=== PATIENT | male | born 1995 | race Caucasian/White ===

== ENCOUNTER 2017-02-23 08:52 | Emergency (ER) | payer SELFPAY ==
[~2017-02-23] VITALS: Ht 170.2 cm; Wt 65.0 kg
[2017-02-23 09:00] VITALS: Ht 170.2 cm; Wt 65.0 kg
[2017-02-23] MEDS ORDERED: LORAZEPAM 2 MG INJ IM STA (09:02)
[2017-02-23] MEDS ORDERED: HALOPERIDOL 5 MG INJ IM STA (09:02)
[2017-02-23 11:03] LABS: BASOPHILS % 0.2 % (0.0-2.0); EOSINOPHILS # 0.1 10^3/ul (0.0-0.5); EOSINOPHILS % 0.6 % (0.0-7.0); HEMATOCRIT 44.5 % (42.0-52.0); HEMOGLOBIN 15.3 g/dl (14.0-18.0); MEAN CORPUSCULAR HEMOGLOBIN 31.2 pg (29.0-33.0); MEAN CORPUSCULAR HGB CONC 34.4 g/dl (32.0-37.0); MEAN CORPUSCULAR VOLUME 90.8 fl (82.0-101.0); MONOCYTE # 0.7 10^3/ul (0.3-0.9); MONOCYTES % 6.6 % (0.0-11.0); NEUTROPHIL # 8.5 10^3/ul (1.6-7.5); NEUTROPHILS % 82.4 % (39.0-77.0); PLATELET COUNT 256 10^3/UL (140-415); RED CELL DISTRIBUTION WIDTH 14.3 % (11.5-14.5); WHITE BLOOD COUNT 10.3 10^3/ul (4.8-10.8)
--- NOTE | 2017-02-23 11:27 | ERD ---
ER Documentation Chief Complaint Chief Complaint IN ED FOR EVAL OF AGITATION. PT STATES TOOK METH. HPI This 21-year-old male was brought in today by [email or web address] [email or web address] worker who is a friend of the family and states that she admitted to taking meth and hearing voices. He is not taking any of his medications which are unknown for his long-term schizophrenia. Is also had bizarre behavior in the family is worried about him. Patient himself is talking but states he does not want to talk about hearing voices. He refuses to sit down in a gurney. ROS All systems reviewed and are negative except as per history of present illness although patient is unreliable and not answering all questions. Medications Home Meds Unable to Obtain Active Prescriptions or Reported Meds Allergies Allergies: Coded Allergies: No Known Allergy (Unverified , 02/23/17) PMhx/Soc Medical and Surgical Hx: pt denies Medical Hx, pt denies Surgical Hx Hx Alcohol Use: Yes Hx Substance Use: Yes Hx Tobacco Use: Yes Smoking Status: Current every day smoker Physical Exam Vitals Vital Signs Date Time Temp Pulse Resp B/P Pulse Ox O2 Delivery O2 Flow Rate FiO2 02/23/17 11:00 9702.8 94 17 121/81 97 02/23/17 10:45 97.1 89 16 119/79 98 02/23/17 10:30 97.2 98 14 117/78 99 02/23/17 10:15 98.1 104 16 127/76 98 02/23/17 10:00 97.0 119 74 121/71 100 02/23/17 09:45 97.4 127 18 127/81 100 02/23/17 09:30 97.1 135 18 134/79 100 02/23/17 09:00 97.9 139 19 139/85 99 Physical Exam Const: [] No acute physical distress Head: Atraumatic Eyes: Normal Conjunctiva, EOMI, PERRLA ENT: Normal External Ears, Nose and Mouth. Neck: Full range of motion..~ No meningismus. Resp: Clear to auscultation bilaterally Cardio: Regular rate and rhythm, no murmurs Abd: Soft, non tender, non distended. Normal bowel sounds Skin: No petechiae or rashes Ext: No cyanosis, or edema Neur: Awake and alert and oriented 3, disorganized thinking, not answering all questions, cranial nerves II through XII grossly intact, no deficits. Normal gait Psych: Flat affect with apparent disorganized thinking Result Diagram: 02/23/17 1045 Results 24 hrs Laboratory Tests Test 02/23/17 10:45 White Blood Count 10.310^3/ul Red Blood Count 4.9010^6/ul Hemoglobin 15.3g/dl Hematocrit 44.5% Mean Corpuscular Volume 90.8fl Mean Corpuscular Hemoglobin 31.2pg Mean Corpuscular Hemoglobin Concent 34.4g/dl Red Cell Distribution Width 14.3% Platelet Count 73102^3/UL Mean Platelet Volume 9.0fl Neutrophils % 82.4% Lymphocytes % 10.0% Monocytes % 6.6% Eosinophils % 0.6% Basophils % 0.2% Nucleated Red Blood Cells % 0.0/100WBC Neutrophils # 8.510^3/ul Lymphocytes # 1.010^3/ul Monocytes # 0.710^3/ul Eosinophils # 0.110^3/ul Basophils # 0.010^3/ul Nucleated Red Blood Cells # 0.010^3/ul Current Medications Medications (Trade) Dose Ordered Sig/Satya Route PRN Reason Start Time Stop Time Status Last Admin Dose Admin Lorazepam (Ativan) 2 mg ONCE STAT IM 02/23/17 09:02 02/23/17 09:05 DC 02/23/17 09:31 Haloperidol (Haldol) 5 mg ONCE STAT IM 02/23/17 09:02 02/23/17 09:05 DC 02/23/17 09:31 Procedures/MDM Schizophrenic young man with apparent acute exacerbation of psychosis. After the family friend left the patient in wandering around the emergency room and going to other patients rooms. Is difficult to reason with did not want to cooperate with being in his gurney. He was given 5 mg of Haldol IM which would help with the psychotic symptoms as well as 2 mg of Ativan for his agitation. Patient remained conscious but was more calm. Is going to be evaluated by tele- psychiatry and I believe they will recommend psychiatric admission for medication management. Is medically cleared nicely medical condition and will occlude him from psychiatric admission. Departure Diagnosis: Primary Impression: Acute psychosis Condition: JAYE Gore DO Feb 23, 2017 11:27
[2017-02-23 11:30] LABS: ALANINE AMINOTRANSFERASE 224 IU/L (13-69); ALBUMIN 4.5 g/dl (3.3-4.9); ALBUMIN/GLOBULIN RATIO 1.28; ALKALINE PHOSPHATASE 62 IU/L (42-121); ANION GAP 15 (8-16); ASPARTATE AMINO TRANSFERASE 79 IU/L (15-46); BILIRUBIN,INDIRECT 1.3 mg/dl (0-1.1); BILIRUBIN,TOTAL 1.3 mg/dl (0.2-1.3); BLOOD UREA NITROGEN 19 mg/dl (7-20); CALCIUM 9.5 mg/dl (8.4-10.2); CARBON DIOXIDE 32 mmol/L (21-31); CHLORIDE 101 mmol/L (97-110); CREATININE 1.07 mg/dl (0.61-1.24); GLUCOSE 98 mg/dl (70-220); POTASSIUM 3.8 mmol/L (3.5-5.1); SODIUM 144 mmol/L (135-144)
[2017-02-23 11:31] LABS: ACETAMINOPHEN < 10.0 ug/ml (10.0-30.0); ETHANOL < 10.0 mg/dl; SALICYLATE < 1.0 mg/dl (5.0-30.0)
[2017-02-23 12:55] LABS: ADD UMIC NO; UR ASCORBIC ACID NEGATIVE (NEGATIVE); UR BILIRUBIN (Dip) NEGATIVE (NEGATIVE); UR BLOOD (Dip) NEGATIVE (NEGATIVE); UR CLARITY CLEAR (CLEAR); UR COLOR YELLOW (YELLOW); UR GLUCOSE (Dip) NEGATIVE (NEGATIVE); UR KETONES (Dip) TRACE mg/dL (NEGATIVE); UR LEUKOCYTE ESTERASE (Dip) NEGATIVE Leu/ul (NEGATIVE); UR NITRITE (Dip) NEGATIVE (NEGATIVE); UR SPECIFIC GRAVITY (Dip) 1.029 (1.003-1.030); UR TOTAL PROTEIN (Dip) NEGATIVE (NEGATIVE); UR UROBILINOGEN (Dip) NEGATIVE (NEGATIVE)
[2017-02-23 13:09] LABS: CANNABINOIDS Positive (NEGATIVE); OPIATES Negative (NEGATIVE)
[2017-02-23] MEDS ORDERED: OLANZAPINE 10 MG VIAL IM ONE (13:30)
[2017-02-23 13:32] LABS: BARBITURATES Negative (NEGATIVE); BENZODIAZEPINES Negative (NEGATIVE); COCAINE Negative (NEGATIVE)
[2017-02-23 16:30] VITALS: BP 114/56; PULSE 107; RESP 16; TEMP 98.6
== END 2017-02-23 17:10 | disposition home or self-care (01) ==
LOC: E/R 08:52
DX: F23 Brief psychotic disorder (principal); F17.210 Nicotine dependence, cigarettes, uncomplicated
CPT/HCPCS: 80053; 80306; 80307; 81003; 85025; 96372; 99284; J1630; J2060